=== PATIENT | female | born 1990 | race Caucasian/White ===

== ENCOUNTER → 2021-09-12 07:54 | Outpatient (BNVA) | payer OTHER, SELFPAY | PROVIDERS: PCP Internal Medicine; Visit Provider Psychiatry & Neurology Neurology | DX: Z13.89 Encounter for screening for other disorder (principal) ==

== ENCOUNTER → 2022-09-15 12:07 | Outpatient (BNVA) | payer OTHER, SELFPAY | PROVIDERS: PCP Internal Medicine; Visit Provider Psychiatry & Neurology Neurology ==

== ENCOUNTER 2023-09-17 08:30 | Outpatient (AMB) | payer OTHER, SELFPAY ==
--- NOTE | 2023-09-17 08:54 | MHC.OFFVIS ---
Vital Signs 09/17/23 08:59 Height 4 ft 11 in Weight 128 lb 8 oz BMI 26.0 BP 115/72 Blood Pressure Location Lt brachial Position Sitting Pulse 83 Pulse Source Pulse Oximeter Pulse Oximetry (%) 100 Oxygen Delivery Method Room Air Intake Visit Reasons: Follow up - LVM w/add Intake Note: Patient presents for f/u. 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 Pt reports that her headaches have improved.she is on amitriptyline 10mg qhs She also takes baclofen 10 mg daily as needed for neck muscle tightness. Pt did not do physical therapy, stating that she tried in the past but not really helpful. Patient uses heating pad for neck and shoulder pain. MRI of cervical spine reviewed. Finding of neurofibromatosis including nerve root thickening in the cervical and imaged upper thoracic spine partially imaged dural ectasia in lateral meningoceles in the upper thoraic spine and partially imaged paraspinal and intercostal region soft tissue thickening compatible with neurofibromas. Findings are grossly stable compared with 06/15/20 MRI of cervical spine. She is also following by Dr. Tripathi, a neurosurgeon. [facility] Medical History Anxiety OCD (obsessive compulsive disorder) Ovarian cancer Family History Mother Neurofibromatosis Father Neurofibromatosis Social History Alcohol intake: never Patient Tobacco Use Status: Never used Tobacco Physical Exam Vital Signs: Last Vital Signs Pulse 83 09/17/23 08:59 BP 115/72 09/17/23 08:59 Pulse Ox 100 09/17/23 08:59 Oxygen Delivery Method Room Air 09/17/23 08:59 BMI result Body Mass Index 26.0 Const Orientation/consciousness: patient oriented x3 Neck Other: Tightness and tenderness in lily cervical muscles, laterally and posteriorly. Slightly limited neck lateral ROM. Neuro General: patient oriented x3, gait normal, tone normal and moves all extremities Cranial nerves: Yes CN's II-XII intact bilaterally, Yes Bilaterally intact EOM present and Yes Normal facial strength present Cognition (Neuro): normal cognition Gait exam (Neuro): Normal gait present Deep tendon reflexes (DTR's): Right triceps reflex intensity grade: 3+, Left triceps reflex intensity grade: 3+, Rt Biceps (C5, C6): 3+, Left biceps reflex intensity grade: 3+, Right brachioradialis reflex intensity grade: 3+, Left brachioradialis reflex intensity grade: 3+, Right patellar reflex intensity grade: 3+ and Left patellar reflex intensity grade: 3+ Psych Appearance: grossly normal Assessment & Plan Assessment & Plan (1) H/O type 1 neurofibromatosis: Code(s): Z86.69 - Personal history of other diseases of the nervous system and sense organs Category: Medical (2) Anxiety: Code(s): F41.9 - Anxiety disorder, unspecified Category: Medical (3) Neurofibroma: Code(s): D36.10 - Benign neoplasm of peripheral nerves and autonomic nervous system, unspecified Category: Medical (4) Chronic headaches: Code(s): R51.9 - Headache, unspecified; G89.29 - Other chronic pain Category: Medical (5) Cervicalgia: Code(s): M54.2 - Cervicalgia Category: Medical Plan Continue amitriptyline 10mg qhs She may use sumatriptan 50 mg at onset of migraine and repeat in 2 hours for acute migraine attack. restart Baclofen 10 mg bid restart Magnesium 400mg qhs will consider gabapentin qhs for sleep. Continue to use heating pad to manage her neck muscle tightness. Medications: New baclofen 10 mg PO BID 180 tabs 3RF magnesium oxide 400 mg PO BEDTIME 90 tabs 5RF Refilled amitriptyline 10 mg PO BEDTIME 90 tabs 3RF sumatriptan succinate take 1 tab at onset of migraine, may repeat in 2 hours. do not exceed 2 doses per 24 hrs/ 4 tab per week. 50 mg PO Q2-4H 30 days PRN 12 tabs 2RF migraine headache Coding Level of Care Code Est Pt Level 4 (85815) Diagnoses H/O type 1 neurofibromatosis Z86.69 Anxiety F41.9 Neurofibroma D36.10 Chronic headaches R51.9; G89.29 Cervicalgia M54.2
[2023-09-17 08:59] VITALS: BP 115/72; PULSE 83; O2SAT 100; BMI 26.0
== END 2023-09-17 09:15 | disposition home or self-care (01) ==
PROVIDERS: PCP Internal Medicine; Visit Provider Psychiatry & Neurology Neurology
DX: Z86.69 Personal history of other diseases of the nervous system and sense organs (principal); F41.9 Anxiety disorder, unspecified; D36.10 Benign neoplasm of peripheral nerves and autonomic nervous system, unspecified; R51.9 Headache, unspecified; G89.29 Other chronic pain; M54.2 Cervicalgia
CPT/HCPCS: 99214

== ENCOUNTER → 2023-09-17 08:30 | Outpatient (BNVA) | payer OTHER, SELFPAY | PROVIDERS: PCP Internal Medicine; Visit Provider Psychiatry & Neurology Neurology ==

== ENCOUNTER 2024-10-07 07:50 | Outpatient (AMB) | payer OTHER, SELFPAY ==
--- OUTSIDE RECORDS SUMMARY | 2024-10-07 07:53 | XMS_ITS ---
Author Name [facility] Organization Unknown History of Medication Use Medication Directions Dispensed Refills Start Date End Date Stat us oxyCODONE-acetaminop hen (PERCOCET) 10-325 mg per tablet Take 1 tablet by mouth 2 (two) times a day in the morning and the early afternoon. 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-07 ProblemAct [facility] Neurofibromatosis, type 1 active 2010-06-19 ProblemAct [facility] ADHD (attention deficit hyperactivity disorder) active 2010-06-24 ProblemAct [facility] Migraine active 2010-06-24 ProblemAct [facility] Neck pain active 2013-04-29 ProblemAct [facility] Muscle spasm active EncounterDiagnosisAct [facility] 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
[2024-10-07 07:55] VITALS: BP 122/84; PULSE 98; O2SAT 99; BMI 27.4
--- NOTE | 2024-10-07 07:55 | MHC.OFFVIS ---
Vital Signs 10/07/24 07:55 Height 4 ft 11 in Weight 135 lb 8 oz BMI 27.4 BP 122/84 Blood Pressure Location Lt brachial Position Sitting Pulse 98 Pulse Source Pulse Oximeter Pulse Oximetry (%) 99 Oxygen Delivery Method Room Air Intake Visit Reasons: Follow up Intake Note: Patient presents for follow up migraines. med trial magnesium and baclofen. Would like to up Amitriptyline. having couple migraines a month Allergies No Known Allergies Allergy (Verified 10/07/24 08:00) Medication List - Last Reconciled 10/07/24 by Brooke Huggins MD amitriptyline 50 mg (2 x 25 mg) PO BEDTIME baclofen 10 mg PO BID lorazepam 1 mg PO DAILY PRN magnesium oxide 400 mg PO BEDTIME norethindrone ac-eth estradiol 1-20 mg-mcg () 1 tab PO DAILY ondansetron 4 mg PO Q8H PRN oxycodone 10 mg PO BID PRN sumatriptan succinate 50 mg PO Q2-4H PRN 30 days HPI Comments Details: 33y/o female with neurofibromotosis type 1, chronic headaches, neck pain and anxiety comes for follow up.she is doing well. Pt reports that her headaches have improved.she is on amitriptyline 25mg qhs She also takes baclofen 10 mg daily as needed for neck muscle tightness.she forgets to take magnesium . Patient uses heating pad for neck and shoulder pain. MRI of cervical spine reviewed. Finding of neurofibromatosis including nerve root thickening in the cervical and imaged upper thoracic spine partially imaged dural ectasia in lateral meningoceles in the upper thoraic spine and partially imaged paraspinal and intercostal region soft tissue thickening compatible with neurofibromas. Findings are grossly stable compared with 06/15/20 MRI of cervical spine. She is also following by Dr. Tripathi, a neurosurgeon. [facility] Medical History (Updated 10/07/24 @ 08:32 by Brooke Huggins MD) Cervical dystonia Anxiety OCD (obsessive compulsive disorder) Ovarian cancer Family History Mother Neurofibromatosis Father Neurofibromatosis Social History Alcohol intake: never Patient Tobacco Use Status: Never used Tobacco Physical Exam Vital Signs: Last Vital Signs Pulse 98 10/07/24 07:55 BP 122/84 10/07/24 07:55 Pulse Ox 99 10/07/24 07:55 Oxygen Delivery Method Room Air 10/07/24 07:55 BMI result Body Mass Index 27.4 Const Orientation/consciousness: patient oriented x3 Neck Other: Tightness and tenderness in lily cervical muscles, laterally and posteriorly. Slightly limited neck lateral ROM. Neuro General: patient oriented x3, gait normal, tone normal and moves all extremities Cranial nerves: Yes CN's II-XII intact bilaterally, Yes Bilaterally intact EOM present and Yes Normal facial strength present Cognition (Neuro): normal cognition Gait exam (Neuro): Normal gait present Deep tendon reflexes (DTR's): Right triceps reflex intensity grade: 3+, Left triceps reflex intensity grade: 3+, Rt Biceps (C5, C6): 3+, Left biceps reflex intensity grade: 3+, Right brachioradialis reflex intensity grade: 3+, Left brachioradialis reflex intensity grade: 3+, Right patellar reflex intensity grade: 3+ and Left patellar reflex intensity grade: 3+ Psych Appearance: grossly normal Assessment & Plan Assessment & Plan (1) H/O type 1 neurofibromatosis: Code(s): Z86.69 - Personal history of other diseases of the nervous system and sense organs Category: Medical (2) Anxiety: Code(s): F41.9 - Anxiety disorder, unspecified Category: Medical (3) Neurofibroma: Code(s): D36.10 - Benign neoplasm of peripheral nerves and autonomic nervous system, unspecified Category: Medical (4) Chronic headaches: Code(s): R51.9 - Headache, unspecified; G89.29 - Other chronic pain Category: Medical Qualifiers: Headache type: unspecified Intractability: not intractable Qualified Code(s): R51.9 - Headache, unspecified; G89.29 - Other chronic pain (5) Cervicalgia: Code(s): M54.2 - Cervicalgia Category: Medical (6) Cervical dystonia: Code(s): G24.3 - Spasmodic torticollis Category: Medical Plan Increase amitriptyline 50mg qhs She may use sumatriptan 50 mg at onset of migraine and repeat in 2 hours for acute migraine attack. Baclofen 10 mg qhs Magnesium 400mg qhs will consider Botox for cervical dystonia Continue to use heating pad to manage her neck muscle tightness. Medications: Changed From amitriptyline 25 mg PO BEDTIME 30 tabs 2RF To amitriptyline 50 mg (2 x 25 mg) PO BEDTIME 60 tabs 2RF Coding Level of Care Code Est Pt Level 4 (72763) Complex EM visit Add On G2211 Diagnoses H/O type 1 neurofibromatosis Z86.69 Anxiety F41.9 Neurofibroma D36.10 Chronic nonintractable headache, unspecified headache type R51.9; G89.29 Headache type: unspecified Intractability: not intractable Cervicalgia M54.2 Cervical dystonia G24.3
== END 2024-10-07 08:36 | disposition home or self-care (01) ==
LOC: HO.HSMS 07:51
PROVIDERS: PCP Internal Medicine; Visit Provider Psychiatry & Neurology Neurology
DX: Z86.69 Personal history of other diseases of the nervous system and sense organs (principal); F41.9 Anxiety disorder, unspecified; D36.10 Benign neoplasm of peripheral nerves and autonomic nervous system, unspecified; R51.9 Headache, unspecified; G89.29 Other chronic pain; M54.2 Cervicalgia; G24.3 Spasmodic torticollis
CPT/HCPCS: 99214

== ENCOUNTER → 2024-10-07 07:50 | Outpatient (BNVA) | payer OTHER, SELFPAY | PROVIDERS: PCP Internal Medicine; Visit Provider Psychiatry & Neurology Neurology ==